=== PATIENT | male | born 1980 | race Caucasian/White ===

== ENCOUNTER 2019-08-07 07:06 | Emergency (ER) | payer SELFPAY ==
[~2019-08-07] VITALS: Ht 165.1 cm; Wt 92.3 kg
[2019-08-07] MEDS ORDERED: ACETAMINOPHEN 500 MG TABLET PO ONE (08:00)
[2019-08-07 08:58] LABS: INFLUENZA TYPE A NEGATIVE FOR TYPE A (NEGATIVE); INFLUENZA TYPE B NEGATIVE FOR TYPE B (NEGATIVE)
[2019-08-07] MEDS ORDERED: KETOROLAC TROMETHAMINE 30 MG/ML VIAL IM ONE (09:15)
[2019-08-07] MEDS ORDERED: DiphenhydrAMINE HCL 50 MG/ML VIAL IVP ONE (10:00)
[2019-08-07] MEDS ORDERED: METOCLOPRAMIDE HCL 5 MG/ML 2 ML VIAL IVP ONE (10:00)
[2019-08-07] MEDS ORDERED: SODIUM CHLORIDE 0.9% 1,000 ML IV ONE (10:00)
[2019-08-07 10:58] VITALS: BP 123/94
== END 2019-08-07 11:58 | disposition home or self-care (01) ==
LOC: EMS 07:06
DX: Z20.828 Contact with and (suspected) exposure to other viral communicable diseases (principal); B34.9 Viral infection, unspecified; M79.10 Myalgia, unspecified site
CPT/HCPCS: 36415; 70450; 71045; 87635; 87804; 96372; 96374; 96375; 99284; J1200; J1885; J2765; J7030

== ENCOUNTER 2019-08-08 21:25 | Emergency (ER) | payer SELFPAY ==
[~2019-08-08] VITALS: Ht 172.7 cm; Wt 92.3 kg
[2019-08-08 22:15] VITALS: BP 144/79
[2019-08-09] MEDS ORDERED: ACETAMINOPHEN 500 MG TABLET PO ONE
== END 2019-08-09 00:01 | disposition home or self-care (01) ==
LOC: EMS 21:29
DX: J32.9 Chronic sinusitis, unspecified (principal); M79.10 Myalgia, unspecified site